=== PATIENT | female | born 1970 | race Caucasian/White ===

== ENCOUNTER 2020-12-05 07:08 | Outpatient (CLI) | payer OTHER, SELFPAY ==
--- NOTE | ~2020-12-05 | MM_ITS ---
EXAMINATION: MM screening jonas BI w aileen HISTORY: Screening mammogram TECHNIQUE: Craniocaudal and mediolateral oblique 3-D tomosynthesis images were obtained and synthetic 2-D images were generated. CAD analysis was submitted and interpreted. COMPARISON: 08/18/2018 bilateral digital screening mammogram 03/14/2018 diagnostic right mammogram 03/08/2018 limited right breast ultrasound 09/03/2017, 04/27/2016, 12/29/2014 bilateral digital screening mammogram examinations BREAST PARENCHYMAL COMPOSITION: There are scattered areas of fibroglandular density. FINDINGS: There is no evidence of suspicious mass, calcification, or architectural distortion to sugg est malignancy in either breast. There has been no suspicious interval change. 03/08/2018 limited right breast ultrasound demonstrated a 5 x 4 mm oval irregular hypoechoic mass with angular margins at 9:00 8 cm from the nipple, corresponding to a palpable abnormality that time. The re was no mammographic correlate at that time. Follow-up targeted right breast ultrasound examination at 9:00 should be considered. IMPRESSION: 1. No mammographic evidence of malignancy. 2. Consider follow-up targeted right breast ultrasound at 9:00 for comparison with 03/08/2018 limited right breast ultrasound examination which demonstrated a suspicious mass for which ultrasound-guided biopsy was recommended at the time. BI-RADS Category 0: Incomplete: Needs additional imaging evaluation. Reviewed, dictated and finalized at location A. IMPRESSION: 1. No mammographic evidence of malignancy. 2. Consider follow-up targeted right breast ultrasound at 9:00 for comparison w ith 03/08/2018 limited right breast ultrasound examination which demonstrated a suspicious mass for which ultrasound-guided biopsy was recommended at the time. BI-RADS Category 0: Incomplete: Needs additional imaging evaluation.
== END 2020-12-05 07:09 | disposition home or self-care (01) ==
LOC: CHSIMG 07:11
PROVIDERS: PCP Internal Medicine; Visit Provider Obstetrics & Gynecology
DX: Z12.31 Encounter for screening mammogram for malignant neoplasm of breast (principal)
CPT/HCPCS: 77063; 77067

== ENCOUNTER 2021-05-15 00:57 | Day surgery (SDC) | payer OTHER, SELFPAY ==
[2021-04-26 13:40] VITALS: BMI 37.6
[2021-05-15 07:45] VITALS: BP 148/86; PULSE 75; RESP 16; TEMP 36.3; O2SAT 100; BMI 39.8
[2021-05-15] MEDS: LACTATED RINGERS 1,000 ML 150 ML IV CONT (08:12)
[2021-05-15] MEDS: LIDOCAINE HCL 4% LOCAL INJ 5 ML AMP INFILTRATE (08:15)
--- NOTE | 2021-05-15 08:15 | WPDANESEPPF ---
Anes - Initial Pre Proc Eval Procedure: Operation Date: 05/15/21 09:00 Proposed Procedures p Screening Colonoscopy - Emilio Salinas MD Date/Time: 05/15/21 08:15 Surgeon: Emilio Salinas MD Pre Op Diagnosis: neoplasm screening Patient Data Age: 50 Gender: F Height: 1.7 m Weight: 115.3 kg Last Vital Signs Temp 97.4 F L 05/15/21 07:45 Pulse 75 05/15/21 07:45 Resp 16 05/15/21 07:45 BP 148/86 H 05/15/21 07:45 Pulse Ox 100 05/15/21 07:45 Allergies Allergy/AdvReac Type Severity Reaction Status Date / Time ciprofloxacin Allergy Severe Bone Pain Verified 05/15/21 08:15 Quinolones Allergy Mild unknown Verified 05/15/21 08:15 Home Medications Medication Instructions Recorded Confirmed Type budesonide-formoterol [Symbicort] 2 puff INHALATION BID 04/26/21 04/26/21 History bupropion HCl 150 mg PO DAILY 04/26/21 04/26/21 History diclofenac sodium 50 mg PO BID 04/26/21 04/26/21 History phentermine-topiramate [Qsymia] 1 cap PO DAILY 04/26/21 04/26/21 History Patient hx anesthesia problems: none Family hx anesthesia problems: none Results Review: All pre-operative results and documents have been reviewed as part of the pre-operative evaluation. [facility], [facility] Past Medical History Medical History (Updated 05/15/21 @ 08:15 by Daniel Sebastian MD) Anxiety COPD (chronic obstructive pulmonary disease) Depression Hypercholesteremia Family History Family History Father Asthma Mother Family history of lung cancer Other Family history of arthritis Family history of cardiovascular disease Family history of malignant neoplasm Social History Social History Smoking packs per day: 1 Smoking cigarettes per day: 20.0 Years smoked: 20 Smoking pack-years: 20.00 Smoking status: Former smoker Tobacco type: cigarettes Smoking end date: 06/17/12 Alcohol intake: current Drinks per week: 6 Living arrangements: with family Spiritual care concerns: No Anes - Eval Final PreProcedure Day of Procedure 05/15/21 08:15 Patient weight: morbidly obese Heart: regular rate and rhythm Lungs: clear to auscultation Airway: Mallampati scale class II Neurological: alert and oriented Last oral intake: >/= 8 hours ASA classification: III Emergent: no Anesthetic plan: proceed Anesthesia type and monitoring: general GIVS and standard monitoring Results Review: All pre-operative results and documents have been reviewed as part of the pre-operative evaluation. Informed Consent: The patient's anesthetic plan and its attendant risks and benefits were discussed with the patient/family/POA. Questions were solicited and answers provided to the satisfaction of the patient/family/POA.
--- NOTE | 2021-05-15 08:15 | PM.HPGS ---
History of Present Illness History of Present Illness Consent: Risks, benefits, and alternatives have been discussed and questions answered. Patient agrees to proceed with procedure. Chief complaint: neoplasm screening Narrative: Zara Hill is a 50 year old female here for first screening colonoscopy Review of Systems Constitutional: Constitutional: Denies headache(s) and Denies weakness Eyes: Eyes: Denies blurry vision ENT: Reports Normal hearing present, Denies headache(s) and Denies neck pain Cardiovascular: Cardiovascular: Denies chest pain and Denies dyspnea Respiratory: Respiratory: Denies dyspnea Gastrointestinal: Gastrointestinal: Reports no additional gastrointestinal complaints Genitourinary: Genitourinary: Denies dysuria Musculoskeletal: Musculoskeletal: Denies neck pain Integumentary/Breasts: Skin/Breast: Denies dry skin Neurologic: Reports Normal hearing present, Denies headache(s) and Denies weakness Psychiatric: Psychiatric: Denies anxiety Endocrine: Endocrine: Denies change in body appearance Hematologic/Lymphatic: Hematologic/Lymphatic: Denies easy bleeding Allergic/Immunologic: Allergic/Immunologic: Denies urticaria PMF Past Medical History Medical History (Updated 05/15/21 @ 08:15 by Emilio Salinas MD) Anxiety Colon cancer screening COPD (chronic obstructive pulmonary disease) Depression Hypercholesteremia Family History Family History Father Asthma Mother Family history of lung cancer Other Family history of arthritis Family history of cardiovascular disease Family history of malignant neoplasm Social History Social History Smoking packs per day: 1 Smoking cigarettes per day: 20.0 Years smoked: 20 Smoking pack-years: 20.00 Smoking status: Former smoker Tobacco type: cigarettes Smoking end date: 06/17/12 Alcohol intake: current Drinks per week: 6 Living arrangements: with family Spiritual care concerns: No Meds Home Medications and Allergies Home Medications Medication Instructions Recorded Confirmed Type budesonide-formoterol [Symbicort] 2 puff INHALATION BID 04/26/21 04/26/21 History bupropion HCl 150 mg PO DAILY 04/26/21 04/26/21 History diclofenac sodium 50 mg PO BID 04/26/21 04/26/21 History phentermine-topiramate [Qsymia] 1 cap PO DAILY 04/26/21 04/26/21 History Allergies Allergy/AdvReac Type Severity Reaction Status Date / Time ciprofloxacin Allergy Severe Bone Pain Verified 05/15/21 08:15 Quinolones Allergy Mild unknown Verified 05/15/21 08:15 Vital Signs Vital Signs - 24 hr 05/15/21 07:45 Temperature 97.4 F L Pulse Rate 75 Respiratory Rate 16 Blood Pressure 148/86 H Pulse Oximetry 100 Exam Const: General: comfortable and no acute distress HENMT: General nose exam: Normal nares present Eyes: General: appearance normal, both eyes and all related structures Neck: Neck: no JVD Resp: Auscultation: clear to auscultation bilaterally Cardio: Rate: regular rate Rhythm: regular rhythm GI: Inspection: non-distended GI Palp: Yes Soft to palpation Skin: General skin exam: normal color Neuro: General: gait normal Speech: normal speech Extrem: General: normal to inspection Psych: Mental Status: mental status grossly normal Assessment and Plan Assessment and plan (1) Colon cancer screening: Code(s): Z12.11 - Encounter for screening for malignant neoplasm of colon Status: Acute Assessment and Plan: colonoscopy
[2021-05-15 08:37] VITALS: BP 104/77; PULSE 65; RESP 20; O2SAT 97
[2021-05-15 08:47] VITALS: BP 128/83; PULSE 70; RESP 18; O2SAT 99
[2021-05-15 08:57] VITALS: BP 106/81; PULSE 63; RESP 17; O2SAT 99
== END 2021-05-15 09:13 | disposition home or self-care (01) ==
PROVIDERS: PCP Internal Medicine; Visit Provider Internal Medicine Gastroenterology
PROC: 0DJD8ZZ Inspection of Lower Intestinal Tract, Via Natural or Artificial Opening Endoscopic (ICD-10-PCS; CPT 45378; principal; 2021-05-15 09:00)
DX: Z12.11 Encounter for screening for malignant neoplasm of colon (principal); K57.30 Diverticulosis of large intestine without perforation or abscess without bleeding; K64.8 Other hemorrhoids; J44.9 Chronic obstructive pulmonary disease, unspecified; E78.00 Pure hypercholesterolemia, unspecified; F41.8 Other specified anxiety disorders; Z87.891 Personal history of nicotine dependence; E66.01 Morbid (severe) obesity due to excess calories; Z68.39 Body mass index [BMI] 39.0-39.9, adult
CPT/HCPCS: 45378; J7120

== ENCOUNTER 2022-03-18 22:10 | Observation (INO) | payer OTHER, SELFPAY ==
--- NOTE | ~2022-03-18 | CT_ITS ---
EXAMINATION: CT abdomen pelvis w con DATE: 03/19/2022 01:59 INDICATION: Right upper quadrant abdominal pain. Nausea, vomiting, and diarrhea. TECHNIQUE: Computed tomography (CT) of the abdomen and pelvis was performed with 100 mL Omnipaque 350 intravenous contrast. Automated exposure control and iterative reconstruction technique were employe d. The dose-length product was 1471.05 mGy-cm. COMPARISON: None. FINDINGS: The visualized portions of the lung bases demonstrate mild atelectasis. No pleural effusion . The heart size is normal. No pericardial effusion. The liver and spleen are normal. The gallbladder is distended. There is fat stranding around the gallbladder. The pancreas, adrenal glands, and kidne ys are normal. There are no dilated loops of bowel. There is diverticulosis of the colon without evid ence of diverticulitis. The appendix is normal. There is a 3.3 cm cyst in left ovary, likely a follic ular cyst. There is a nabothian cyst in the cervix. There are no pathologically enlarged lymph nodes. There is no free intraperitoneal fluid. There is severe lower lumbar spondylosis. IMPRESSION: 1. Acute cholecystitis. Reviewed, dictated and finalized at location B. IMPRESSION: 1. Acute cholecystitis.
[2022-03-18 22:32] VITALS: BP 187/102; PULSE 72; RESP 18; TEMP 36.6; O2SAT 100
[2022-03-19] VITALS (26 sets, daily range): BP systolic 91–188; BP diastolic 35–103; PULSE 62–86; RESP 12–26; TEMP 35.7–37.2; O2SAT 92–100; BMI 39.2
[2022-03-19 00:47] LABS: Appearance Urine Clear (Clear); Bilirubin Urine Negative (Negative); Blood Urine Trace-intact (Negative); Color Urine Yellow (Yellow); Glucose Urine UA Negative (Negative); Ketones Urine 2+ mg/dL (Negative); Leukocyte Esterase Ur Negative LEU/UL (Negative); Nitrate Urine Negative (Negative); Protein Urine Trace mg/dL (Negative); Urobilinogen Urine 0.2 mg/dL (<2.0)
[2022-03-19 00:48] LABS: Basophils Percent Auto 0.3 % (0.2-1.2); Eosinophils Percent Auto 0.4 % (0-4.4); Hematocrit 39.5 % (37.0-47.0); Hemoglobin 13.1 g/dL (12.0-15.0); Immature Granulocyte Absolute 0.03 K/mm3 (0.00-0.031); Immature Granulocyte Percent A 0.3 % (0-0.5); Lymphocytes Absolute Auto 0.95 K/mm3 (0.9-3.2); Lymphocytes Percent Auto 8.4 % (18.3-44.2); Mean Corpuscular HGB Conc 33.2 g/dl (32-36); Mean Corpuscular Hemoglobin 32.5 pg (26-34); Mean Platelet Volume 10.5 fl (7.4-10.4); Monocytes Absolute Auto 0.4 K/mm3 (0.1-0.6); Monocytes Percent Auto 3.7 % (2.6-8.5); Neutrophils Absolute Auto 9.8 K/mm3 (1.3-6.7); Neutrophils Percent Auto 86.9 % (45.5-73.1); Platelet Count Result 213 k/mm3 (150-375); Red Blood Count 4.03 M/mm3 (4.2-5.4); Red Cell Distribution Width 12.7 % (11.5-14.5); White Blood Count 11.3 K/mm3 (4.5-10.0)
[2022-03-19 00:55] LABS: RBC Urine 0-2 /hpf (0-2); Squamous Epithelial Cell Urine Rare /hpf (Few); WBC Urine 0-3 /hpf
--- NOTE | 2022-03-19 00:56 | ED.ABDPAIN ---
HPI - Abdominal Pain General Chief Complaint: Abdominal Pain <JUAN Elizalde Last Filed: 03/19/22 03:51> Stated Complaint: epigastric pain <JUAN Elizalde Last Filed: 03/19/22 03:51> Time Seen by Provider: 03/19/22 00:28 <JUAN Elizalde Last Filed: 03/19/22 03:51> Source: patient <JUAN Elizalde Last Filed: 03/19/22 03:51> Mode of arrival: ambulatory <JUAN Elizalde Last Filed: 03/19/22 03:51> Limitations: no limitations <JUAN Elizalde Last Filed: 03/19/22 03:51> History of Present Illness HPI narrative: Patient is a 51-year-old female who presents the ED with report of right upper quadrant abdominal pain. Patient reports she developed pain around 4pm on 03/18. She notes a history of previously similar pain which was attributed to gallstones, diagnosed via right upper quadrant ultrasound. She took a tramadol at home without much relief. Has not tried anything else for pain. Also reported having nausea, vomiting, diarrhea. No blood in the stool. No urinary symptoms. No fever. <JUAN Elizalde Last Filed: 03/19/22 03:51> Related Data Home Medications: Home Medications Medication Instructions Recorded Confirmed budesonide-formoterol HFA 160 2 puff inhalation BID 04/26/21 03/19/22 mcg-4.5 mcg/actuation aerosol inhaler (Symbicort) bupropion HCl 150 mg 24 hr tablet, 150 mg PO DAILY 04/26/21 03/19/22 extended release diclofenac sodium 50 mg 50 mg PO BID 04/26/21 03/19/22 tablet,delayed release progesterone micronized 100 mg 100 mg PO HS 03/19/22 03/19/22 capsule <JUAN Elizalde Last Filed: 03/19/22 03:51> Allergies/Adverse Reactions: Allergies Allergy/AdvReac Type Severity Reaction Status Date / Time ciprofloxacin Allergy Severe Bone Pain Verified 03/19/22 04:00 Quinolones Allergy Mild unknown Verified 03/19/22 04:00 <Tiffanie Lauren PA-C - Last Filed: 03/19/22 03:51> Review of Systems Review of Systems: CONSTITUTIONAL: Denies fever, chills, or sweats. CARDIOVASCULAR: Denies chest pain. RESPIRATORY: Denies dyspnea. GASTROINTESTINAL: Reports RUQ pain, N/V/D. Denies rectal bleeding, constipation. GENITOURINARY: Denies dysuria or hematuria. <Tiffanie Lauren PA-C - Last Filed: 03/19/22 03:51> All systems reviewed & are unremarkable except as noted in HPI and below <Tiffanie Lauren PA-C - Last Filed: 03/19/22 03:51> PMF Past Medical History Medical History: Medical History Anxiety Colon cancer screening COPD (chronic obstructive pulmonary disease) Depression Diverticulitis Gallstones Hypercholesteremia <JUAN Elizalde Last Filed: 03/19/22 03:51> Surgical History Surgical History: Surgical History No pertinent past surgical history <Tiffanie Lauren PA-C - Last Filed: 03/19/22 03:51> Family History Family History: Family History Father Asthma Mother Family history of lung cancer Other Family history of arthritis Family history of cardiovascular disease Family history of malignant neoplasm <Tiffanie Lauren PA-C - Last Filed: 03/19/22 03:51> Social History Social History: Social History Smoking packs per day: 1 Smoking cigarettes per day: 20.0 Years smoked: 25 Smoking pack-years: 25.00 Smoking status: Former smoker Tobacco type: cigarettes Smoking end date: 06/17/12 Alcohol intake: current Drinks per week: 8 Substance use: never Spiritual care concerns: No <Tiffanie Lauren PA-C - Last Filed: 03/19/22 03:51> Exam Narrative: GENERAL: Well appearing, obese, non-toxic, in no acute distress. HE
[2022-03-19 00:59] LABS: Alanine Aminotransferase 32 U/L (6-35); Albumin Level 4.6 g/dL (3.5-5.1); Alkaline Phosphatase 75 U/L (38-126); Anion Gap 9 mmol/L (8-16); Aspartate Amino Transferase 25 U/L (14-36); Bilirubin,Total 0.5 mg/dL (0.2-1.3); Blood Urea Nitrogen 20 mg/dL (7-17); Calcium 9.1 mg/dL (8.4-10.2); Carbon Dioxide 26 mmol/L (22-30); Chloride 100 mmol/L (98-107); Estimated CRCL calculation 90 ml/min; Estimated Glomerular Filt Rate > 60; Glucose 132 mg/dL (65-110); Lipase 40 U/L (23-300); Potassium 3.8 mmol/L (3.4-5.0); Sodium 135 mmol/L (137-145)
[2022-03-19] MEDS: ONDANSETRON INJ 4 MG/2 ML VIAL IV PUSH ×4 (01:05→20:28)
[2022-03-19] MEDS: SODIUM CHLORIDE 0.9% IV 1,000 ML 999 ML IV CONT (01:05)
[2022-03-19 01:17] LABS: Add Urine Microscopic? YES
[2022-03-19] MEDS: MORPHINE SULFATE (*CRX) 4 MG/ML INJ IV PUSH ×3 (03:37→20:27)
[2022-03-19] MEDS: SODIUM CHLORIDE 0.9% IV 1,000 ML 125 ML IV CONT (04:05)
--- NOTE | 2022-03-19 05:15 | ADMGEN ---
This patient, Zara Hill, was admitted to 3 [facility] Surg Room 320-01. Patient/family oriented to hospital policies and general routines including ID bracelet, bed and alarms, visiting hours, pain management, procedures, bathroom and other care routines, personal items, smoking policy, room service/diet, and visiting hours. Information on how to activate the Rapid Response Team has been discussed. Patient/Family are encouraged to report perceived risks to care and to ask questions if they do not understand what they are told or what they should do.
--- NOTE | 2022-03-19 09:10 | PM.IMHP ---
H&P: HPI History of Present Illness Date/Time: 03/19/22 09:10 Chief Complaint: abdominal pain Narrative: Pt is a 51 y/o F presenting to ED c/o severe RUQ/epigastric abdominal pain that started acutely yest afternoon. Pt reports pain is constant, stabbing. Pt reports assoc anorexia, nausea, bloating. Pt reports she has had similar milder episodes in the past. Pt reports she had U/S a few yrs ago showing cholelithiasis. Review of Systems Constitutional: Constitutional: Reports as per HPI, Reports anorexia, Denies chills, Reports fatigue, Denies fever(s), Reports lethargy, Reports malaise, Reports poor appetite, Reports weakness, Denies weight gain and Denies weight loss Eyes: Eyes: Reports no additional eye complaints ENT: Reports system reviewed and no additional complaints, except as documented Cardiovascular: Cardiovascular: Reports no additional cardiovascular complaints Respiratory: Respiratory: Reports no additional respiratory complaints Gastrointestinal: Gastrointestinal: Reports as per HPI, Reports abdominal pain, Reports bloating, Reports GI cramping, Reports early satiety, Denies diarrhea, Denies loose stools, Reports nausea, Denies vomiting and Denies hematemesis Genitourinary: Genitourinary: Reports no additional female genitourinary complaints Musculoskeletal: Musculoskeletal: Reports no additional musculoskeletal complaints Integumentary/Breasts: Skin/Breast: Reports system reviewed and no additional complaints, except as docu Neurologic: Reports system reviewed and no additional complaints, except as documented Psychiatric: Psychiatric: Reports no additional psychiatric complaints Endocrine: Endocrine: Reports no additional endocrine complaints Hematologic/Lymphatic: Hematologic/Lymphatic: Reports no additional hematologic/lymphatic complaints Allergic/Immunologic: Allergic/Immunologic: Reports no additional allergic/immunologic complaints [facility] Past Medical History Medical History Anxiety Colon cancer screening COPD (chronic obstructive pulmonary disease) Depression Diverticulitis Gallstones Hypercholesteremia Surgical History Surgical History No pertinent past surgical history Family History Family History Father Asthma Mother Family history of lung cancer Other Family history of arthritis Family history of cardiovascular disease Family history of malignant neoplasm Social History Social History Smoking packs per day: 1 Smoking cigarettes per day: 20.0 Years smoked: 25 Smoking pack-years: 25.00 Smoking status: Former smoker Tobacco type: cigarettes Smoking end date: 06/17/12 Alcohol intake: current Drinks per week: 8 Substance use: never Spiritual care concerns: No Comments previous C section Meds Home Medications and Allergies Home Medications Medication Instructions Recorded Confirmed Type budesonide-formoterol HFA 160 2 puff inhalation BID 04/26/21 03/19/22 History mcg-4.5 mcg/actuation aerosol inhaler (Symbicort) bupropion HCl 150 mg 24 hr tablet, 150 mg PO DAILY 04/26/21 03/19/22 History extended release diclofenac sodium 50 mg 50 mg PO BID 04/26/21 03/19/22 History tablet,delayed release progesterone micronized 100 mg 100 mg PO HS 03/19/22 03/19/22 History capsule Allergies Allergy/AdvReac Type Severity Reaction Status Date / Time ciprofloxacin Allergy Severe Bone Pain Verified 03/19/22 04:00 Quinolones Allergy Mild unknown Verified 03/19/22 04:00 Vital Signs Vital Signs - 24 hr 03/18/22 22:32 03/19/22 00:38 03/19/22 00:46 Temperature 36.6 C Pulse Rate 72 78 67 Respiratory Rate 18 17 18 Blood Pressure 187/102 H Pulse Oximetry 100 100 98 Oxygen Delivery Room Air 03/19/22 00:
--- NOTE | 2022-03-19 10:02 | WPDHPUPDATE1 ---
History and Physical Update Update Date/Time: 03/19/22 10:02 History and Physical has been reviewed, including an updated exam of the patient. There are NO changes in the patient's condition. Risks, benefits, and alternatives have been discussed and questions answered. Patient agrees to proceed with procedure.
--- NOTE | 2022-03-19 10:51 | WPDANESEPPF ---
Anes - Initial Pre Proc Eval Procedure: Operation Date: 03/19/22 13:30 Proposed Procedures p Laparoscopic Cholecystectomy - Jaimie Forde MD Date/Time: 03/19/22 10:51 Surgeon: Jaimie Forde MD Pre Op Diagnosis: Acute Cholecystitis Patient Data Age: 51 Gender: F Height: 1.7 m Weight: 113.7 kg Last Vital Signs Temp 35.7 C L 03/19/22 06:00 Pulse 85 03/19/22 06:00 Resp 18 03/19/22 06:00 BP 150/71 H 03/19/22 06:00 Pulse Ox 97 03/19/22 06:00 O2 Del Method Room Air 03/19/22 08:00 Allergies Allergy/AdvReac Type Severity Reaction Status Date / Time ciprofloxacin Allergy Severe Bone Pain Verified 03/19/22 04:00 Quinolones Allergy Mild unknown Verified 03/19/22 04:00 Home Medications Medication Instructions Recorded Confirmed Type budesonide-formoterol HFA 160 2 puff inhalation BID 04/26/21 03/19/22 History mcg-4.5 mcg/actuation aerosol inhaler (Symbicort) bupropion HCl 150 mg 24 hr tablet, 150 mg PO DAILY 04/26/21 03/19/22 History extended release diclofenac sodium 50 mg 50 mg PO BID 04/26/21 03/19/22 History tablet,delayed release progesterone micronized 100 mg 100 mg PO HS 03/19/22 03/19/22 History capsule Laboratory Tests 03/19/22 03/19/22 03/19/22 00:36 00:36 00:36 WBC 11.3 K/mm3 H K/mm3 (4.5-10.0) RBC 4.03 M/mm3 L M/mm3 (4.2-5.4) Hgb 13.1 g/dL g/dL (12.0-15.0) Hct 39.5 % % (37.0-47.0) MCV 98.0 fl fl (80-100) MCH 32.5 pg pg (26-34) MCHC 33.2 g/dl g/dl (32-36) RDW 12.7 % % (11.5-14.5) Plt Count 213 k/mm3 k/mm3 (150-375) MPV 10.5 fl H fl (7.4-10.4) Immature Gran % (Auto) 0.3 % % (0-0.5) Neut % (Auto) 86.9 % H % (45.5-73.1) Lymph % (Auto) 8.4 % L % (18.3-44.2) [place] % (Auto) 3.7 % % (2.6-8.5) Eos % (Auto) 0.4 % % (0-4.4) Baso % (Auto) 0.3 % % (0.2-1.2) Lymph # (Auto) 0.95 K/mm3 K/mm3 (0.9-3.2) [place] # (Auto) 0.4 K/mm3 K/mm3 (0.1-0.6) Eos # (Auto) 0.0 K/mm3 K/mm3 (0-0.3) Baso # (Auto) 0.0 K/mm3 K/mm3 (0.0-0.1) Abs Immat Gran (auto) 0.03 K/mm3 K/mm3 (0.00-0.031) Absolute Neuts (auto) 9.8 K/mm3 H K/mm3 (1.3-6.7) Absolute Nucleated RBC 0.0 K/mm3 K/mm3 (0.0-0.012) Nucleated RBC % 0.0 % % (0.0-0.2) Sodium 135 mmol/L L mmol/L (137-145) Potassium 3.8 mmol/L mmol/L (3.4-5.0) Chloride 100 mmol/L mmol/L (98-107) Carbon Dioxide 26 mmol/L mmol/L (22-30) Anion Gap 9 mmol/L mmol/L (8-16) BUN 20 mg/dL H mg/dL (7-17) Creatinine 0.80 mg/dL mg/dL (0.7-1.0) Estim Creat Clear Calc 90 ml/min ml/min Estimated GFR > 60 (59 - ) Glucose 132 mg/dL H mg/dL (65-110) Calcium 9.1 mg/dL mg/dL (8.4-10.2) Total Bilirubin 0.5 mg/dL mg/dL (0.2-1.3) AST 25 U/L U/L (14-36) ALT 32 U/L U/L (6-35) Alkaline Phosphatase 75 U/L U/L (38-126) Total Protein 8.0 g/dL g/dL (6.3-8.2) Albumin 4.6 g/dL g/dL (3.5-5.1) Lipase 40 U/L U/L (23-300) Urine Color Yellow (Yellow) Urine Appearance Clear (Clear) Urine pH 7.0 (5.0-9.0) Ur Specific [place] 1.020 (1.001-1.035) Urine Protein Trace mg/dL mg/dL (Negative) Urine Glucose (UA) Negative mg/dL mg/dL (Negative) Urine Ketones 2+ mg/dL H mg/dL (Negative) Ur Blood (Man) Trace-intact (Negative) Urine Nitrate Negative (Negative) Urine Bilirubin Negative (Negative) Urine Urobilinogen 0.2 mg/dL mg/dL (<2.0) Leukocyte Esterase Rfl Negative LUIZA/UL LUIZA/UL (Negative) Urine RBC 0-2 /hpf /hpf (0-2) Urine WBC 0-3 /hpf /hpf
[2022-03-19] MEDS: SCOPOLAMINE 1.5 MG PATCH TRANSDERM (11:01)
[2022-03-19] MEDS: LACTATED RINGERS 1,000 ML 30 ML IV CONT ×2 (11:01→13:21)
[2022-03-19] MEDS: BUPIVACAINE/EPINEPHRINE 0.25% 50 ML VIAL 30 ML INFILTRATE (12:52)
[2022-03-19] MEDS: fentaNYL CITRATE INJ (*CRX) 100 MCG/2 ML VIAL 25 MCG IV PUSH ×6 (13:25→13:51)
--- NOTE | 2022-03-19 13:26 | W.PM.PROC2 ---
Procedure Note - Detailed Date of Procedure 03/19/22 Pre-op Diagnosis Acute Cholecystitis Post-op Diagnosis Other (acute hydrops cholecystitis, cholelithiasis) Procedure Performed Laparoscopic cholecystectomy Surgeon Jaimie Forde MD Anesthesia General Indications 51-year-old female presented to the ED complaining of severe right upper quadrant abdominal pain associated with nausea and vomiting. Workup including imaging significant for acute cholecystitis, cholelithiasis. Findings hydrops cholecystitis with cholelithiasis Description of Procedure The patient was taken to the operating room placed in the supine position. After adequate induction of general anesthesia, the patient was prepped and draped in normal sterile fashion. A time-out was then performed to verify the patient's identity as well as the procedure being performed. I then made a 5 mm incision in the infraumbilical region. Through this, a Veress needle was placed into the peritoneal cavity and CO2 gas was then insufflated. After adequate pneumoperitoneum was achieved, the Veress needle was removed and a 5 mm optiview trocar was placed through this incision under direct visualization. I then placed the laparoscope through this trocar site and under direct visualization placed a further 12 mm subxiphoid port as well as 2 additional 5 mm ports in the right upper abdomen. There was multiple adhesions of the omentum to the anterior abdominal wall in the upper midline and RUQ. These adhesions were taken down sharply with cautery. There was an inflammatory mass in the RUQ covered with omentum. I was able to carefully take down the omentum. The gallbladder was then identified and was noted to be severely inflamed, distended, and full of gallstones. Given the intense inflammation in the gallbladder, decompression was necessary. The gallbladder was decompressed with the aspirating needle and hydrops was identified at this point. I was then able to place a grasper at the dome of the gallbladder and this was retracted anterior and cephalad up over the liver. A 2nd retractor was then placed at the infundibulum and retracted laterally, this allowed visualization of the triangle of Calot. I then was able to visualize the cystic duct in its entirety from its proximal insertion into the gallbladder, to its distal junction with the common hepatic/common bile duct junction. At this point, I carefully skeletonized the proximal cystic duct with the [place] dissector. I then clipped and transected the proximal cystic duct. Next I visualized the cystic artery. Again the artery was skeletonized, clipped, and transected. I then used the Bovie cautery to take down the peritoneal attachments of the gallbladder off the liver bed. This was somewhat difficult given the amount of inflammation in the posterior space. Once the gallbladder specimen was completely detached, an endo-pouch was placed through the 12 mm port site. I then placed the gallbladder specimen into the Endo pouch and removed the endo-pouch from the 12 mm port site. The specimen will now be sent to pathology for further review. I then copiously irrigated the right upper quadrant. Some mild oozing was noted in the liver bed and this was controlled with the bovie cautery. Hemostasis was noted in the liver bed, the clips were noted to be in good position on both the cystic duct stump and the cystic artery stump. No other pathology was noted in the right upper quadrant. I then moved the laparoscope to the subxiphoid port. No iatrogenic injury or other pathology was noted in the lower abdomen. I then closed the 12 mm trocar site under direct visualization using the Danny cone and 0 Vicryl suture. At this point, the abdomen was desufflated and all ports removed. All port sites were then closed with 4.O Monocryl subcuticular sutures. Dermabond was placed on each incision. The patient tolerated the procedure well, was extubated in the oper
--- NOTE | 2022-03-19 13:45 | SUR.PHASEI ---
1344: Simple mask removed.
[2022-03-19] MEDS: HYDROmorphone HCL INJ (*CRX) 1 MG/ML SYR IV PUSH ×2 (14:12→14:36)
[2022-03-19] MEDS: HYDROcodone/acetaminophen (*CRX) 5-325 MG TABLET 1 TAB PO (20:19)
[2022-03-19] MEDS: FLUTICASONE/SALMETEROL 115-21 MCG INHALER 1 PUFF 2 PUFF INHALATION (21:21)
[2022-03-19] MEDS: DOCUSATE SODIUM 100 MG CAPSULE PO (21:55)
[2022-03-20] MEDS: HYDROcodone/acetaminophen (*CRX) 5-325 MG TABLET 1 TAB PO ×3 (00:15→08:07)
[2022-03-20 00:19] VITALS: BP 138/74; PULSE 89; RESP 17; TEMP 37.1; O2SAT 96
[2022-03-20 05:17] VITALS: BP 111/56; PULSE 81; RESP 16; TEMP 36.9; O2SAT 94
[2022-03-20] MEDS: DOCUSATE SODIUM 100 MG CAPSULE PO (08:04)
[2022-03-20] MEDS: buPROPion HCL XL (24 HR) 150 MG TABCR PO (08:04)
[2022-03-20] MEDS: DICLOFENAC SOD 25 MG TABLET.EC 50 MG PO (08:04)
[2022-03-20] MEDS: FLUTICASONE/SALMETEROL 115-21 MCG INHALER 1 PUFF 2 PUFF INHALATION (08:23)
--- NOTE | 2022-03-20 11:04 | PM.PNGS ---
Progress Note: A&P Assessment and Plan (1) Acute calculous cholecystitis: Code(s): K80.00 - Calculus of gallbladder with acute cholecystitis without obstruction Status: Acute Assessment and Plan: Postop day 1 and seems to be improving. Patient stayed overnight for pain control. Her pain is now controlled on oral analgesics. Tolerating her diet. Will discharge home today. Follow up in [address] Forde. (2) BMI 39.0-39.9,adult: Code(s): Z68.39 - Body mass index [BMI] 39.0-39.9, adult Status: Acute Plan I have discussed the patient's case and plan of care with Dr. Forde. Subjective Subjective Date/Time Seen: 03/20/22 11:04 Post Op day: 1 (Laparoscopic cholecystectomy) Patient reports: feels better, pain is less, tolerating a regular diet, no flatus, no bowel movement and afebrile Interval history: Patient seen and examined. She was kept overnight due to pain control. She was having right upper quadrant abdominal pain and right shoulder pain following surgery. She did require IV morphine through the night, but has only received Brule this morning. She feels her pain has improved some and she is tolerating activity. She is tolerating a low-fat diet. She wishes to go home. Review of Systems Review of Systems: All systems reviewed & are unremarkable except as noted in HPI and below Cardiovascular: Cardiovascular: Reports as per HPI, Reports no additional cardiovascular complaints, Denies chest pain, Denies chest pain at rest, Denies chest pain with activity, Denies rapid heart rate and Denies pedal edema Exam Const: General: comfortable, no acute distress and awake Orientation/consciousness: patient oriented x3 Resp: Effort & Inspection: normal respiratory effort Auscultation: clear to auscultation bilaterally Cardio: Rate: regular rate Rhythm: regular rhythm GI: Inspection: non-distended, incision (Abdominal incisions clean and dry, glue intact.) and other (Localized ecchymosis around periumbilical incision) GI Palp: Yes Soft to palpation, Yes Tenderness to palpation present (GI) (incisional) and No Guarding due to palpation present (GI) Auscultation: normal bowel sounds Skin: General skin exam: normal color Neuro: General: moves all extremities and no focal motor deficits Extrem: General: no calf tenderness and no edema Psych: Mental Status: mental status grossly normal Insight: Good insight present (Psych) Judgement: Good judgement present (Psych) Objective Data Vital Signs Vital Signs: Vital Signs - 24 hr 03/19/22 13:21 03/19/22 13:35 03/19/22 13:55 Temperature 98.1 F Pulse Rate 83 70 72 Respiratory Rate 20 12 16 Blood Pressure 106/35 L 113/81 115/64 Pulse Oximetry 96 97 95 Oxygen Delivery Simple Face Mask Simple Face Mask Nasal Cannula Oxygen Flow Rate 6 8 3 03/19/22 14:10 03/19/22 14:25 03/19/22 14:40 Temperature Pulse Rate 73 74 76 Respiratory Rate 16 16 15 Blood Pressure 114/66 110/58 L 91/62 L Pulse Oximetry 92 93 93 Oxygen Delivery Nasal Cannula Nasal Cannula Nasal Cannula Oxygen Flow Rate 2 2 3 03/19/22 15:00 03/19/22 15:15 03/19/22 15:30 Temperature 99.0 F 98.9 F 98.9 F Pulse Rate 80 79 82 Respiratory Rate 16 16 16 Blood Pressure 125/74 124/74 118/73 Pulse Oximetry 94 95 96 Oxygen Delivery Oxygen Flow Rate 03/19/22 15:45 03/19/22 16:23 03/19/22 17:30 Temperature 98.9 F 98.4 F 98.7 F Pulse Rate 80 70 62 Respiratory Rate 18 16 16 Blood Pressure 120/70 110/46 L 103/51 L Pulse Oximetry 97 95 96 Oxygen Delivery Oxygen Flow Rate 03/19/22 17:00 03/19/22 20:00 03/19/22 21:58 Temperature 98.9 F 97.8 F Pulse Rate 81 85 Respiratory Rate 16 18 Blood Pressure 111/60 117/69 Pulse Oximetry 93 96 Oxygen Delivery Room Air Oxygen Flow Rate 03/20/22 00:19 03/20/22 05:17 Temperature 98.7 F 98.4 F Pulse Rate 89 81 Respiratory Rate 17 16 Blood Pressure 138/74 111/56 L Pulse Oximetry 96 94 Oxygen Delive
--- NOTE | 2022-03-20 14:35 | WPDANESPN ---
Anes - Prog Note Post-Op Date/Time: 03/20/22 14:35 Cardiovascular status: normal Respiratory status: normal Airway patency: baseline Mental status: baseline Post-Op hydration status: normal Vital Signs: Last Vital Signs Temp 36.9 C 03/20/22 05:17 Pulse 81 03/20/22 05:17 Resp 16 03/20/22 05:17 BP 111/56 L 03/20/22 05:17 Pulse Ox 94 03/20/22 05:17 O2 Del Method Room Air 03/19/22 20:00 O2 Flow Rate 3 03/19/22 14:40 Pain Score (VAS): 0 I/O: Intake & Output 03/19/22 03/20/22 03/20/22 23:59 07:59 15:59 Intake Total 320 1400 120 Balance 320 1400 120 Laboratory Tests 03/19/22 00:36 03/19/22 00:36 Post-procedural complaints: none Patient Feedback: Patient satisfied with anesthetic care.
--- NOTE | 2022-03-21 10:45 | PM.DS ---
DS: Admitting Diagnosis Discharge Date 03/20/22 Admitting Diagnosis Acute cholecystitis, cholelithiasis DS: Discharge Diagnosis Discharge Diagnosis (1) Acute calculous cholecystitis: Code(s): K80.00 - Calculus of gallbladder with acute cholecystitis without obstruction Status: Acute Assessment and Plan: status post laparoscopic cholecystectomy, continue routine postoperative care, home with p.o. analgesia, follow-up 2 weeks (2) BMI 39.0-39.9,adult: Code(s): Z68.39 - Body mass index [BMI] 39.0-39.9, adult Status: Acute Assessment and Plan: dietary and lifestyle modification DS: Summary Hospital Course Reason for hospitalization: acute cholecystitis, cholelithiasis Hospital Course: The patient is a 51-year-old female presenting to the emergency department complaining of severe upper abdominal pain. Workup in the emergency department, including imaging, was significant for acute cholecystitis cholelithiasis. The patient was admitted to the surgical service and made NPO. She was also started on IV antibiotics. Upon evaluation, decision was made to proceed with urgent cholecystectomy. The patient was taken to the operating room and laparoscopic cholecystectomy was performed, please see full operative report for details. The patient was noted to have hydrops cholecystitis during the procedure. Postoperatively, the patient did well was transferred back to the surgical floor. The patient did well postoperatively and was up and ambulating as well as able to tolerate a diet. The pt will be discharged on postoperative 1 with p.o. analgesia and follow-up in 2 weeks. Status at Discharge Functional status at discharge: independent ambulation Overall status at discharge: patient is progressing back to baseline Time Spent with Patient Time attestation: Total time spent providing and/or coordinating discharge services: Time spent: Less than 30 minutes Exam Const: General: cooperative, comfortable and no acute distress Resp: Auscultation: clear to auscultation bilaterally Cardio: Rate: regular rate Rhythm: regular rhythm GI: Inspection: normal to inspection, distended and incision GI Palp: Yes abdominal tenderness, Yes Soft to palpation, Yes Tenderness to palpation present (GI), No Guarding due to palpation present (GI) and No Rigid due to palpation DS: Data Data Completed and Pending Completed studies during hospitalization: Pending at discharge 03/19/22 12:46 Surgical [PTH] Routine Discharge Plan Discharge Attending physician on discharge: Jaimie Forde Consulting providers: Tiffanie Lauren ; Keven Rodriguez V. ; Candelaria Gamez Discharging Clinician: Jaimie Forde Patient Disposition: Home, Self-Care Activity: other - see discharge instructions Diet: other - see discharge instructions Wound Care Instructions: other - see discharge instructions Discharge Instructions: DISCHARGE INSTRUCTION SHEET FOR HERNIA, GALLBLADDER AND APPENDIX SURGERIES DR. FORDE PATIENT TO TAKE HOME 1. May shower in 24 hours, no soaking in bath x 2weeks. 2. Call office for: Wound increasingly painful or bleeding Vomiting Fever of greater than 101 degrees 3. If no bowel movement for three days, take 1 oz. (30 ml) Milk of Magnesia or MiraLax 17g 1 to 2 times daily. 4. No heavy lifting > 10-15 pounds x 6 weeks for hernia repairs and 2 weeks for laparoscopic cholecystectomy or appendectomy. 5. No driving for 3 days or while taking narcotic pain medications. 6. Ice to surgical site for 48 hours (30 min on, then 30 min off). 7. Up walking 10-30 minutes three times per day. 8. Resume previous home medications. 9. Follow-up 10-14 days in office for wound check or as previously scheduled. ([id number]) 10. Oral pain medications prescription to be sent to pharmacy. Take Tylenol 500mg every 6 hours and I
== END 2022-03-20 10:40 | disposition home or self-care (01) ==
LOC: ANHED 03-19 03:43 → ANH3MEDSUR 03-19 04:03
PROVIDERS: Physician Assistant; Admitting Provider Surgery; Emergency Provider Emergency Medicine; PCP Internal Medicine; Visit Provider Surgery
PROC: 0FT44ZZ Resection of Gallbladder, Percutaneous Endoscopic Approach (ICD-10-PCS; CPT 47562; principal; 2022-03-19 13:30)
DX: K80.00 Calculus of gallbladder with acute cholecystitis without obstruction (principal); F41.8 Other specified anxiety disorders; J44.9 Chronic obstructive pulmonary disease, unspecified; E78.00 Pure hypercholesterolemia, unspecified; Z87.891 Personal history of nicotine dependence; Z68.39 Body mass index [BMI] 39.0-39.9, adult
CPT/HCPCS: 47562; 36415; 74177; 80053; 81001; 83690; 85025; 88304; 94640; 96361; 96365; 96366; 96375; 96376; 99285; A9270; G0378; J0131; J0330; J1100; J1170; J2250; J2270; J2405; J2543; J2704; J3010; J7030; J7120; Q9967

== ENCOUNTER 2023-12-16 12:21 | Outpatient (CLI) | payer OTHER, SELFPAY ==
--- NOTE | ~2023-12-16 | XR_ITS ---
XR foot LT min 3V Ordering provider: Yossi Hoffman MD History: . bilat dorsal foot pain x 1 year, NKI . Comparison: October 08, 2018 FINDINGS: BONES: No acute fracture or dislocation. Calcaneus spur. JOINT SPACES: Normal. No tarsal coalition. SOFT TISSUES: Normal. IMPRESSION: No acute osseous abnormality left foot. Reviewed, dictated and finalized at location A.
--- NOTE | ~2023-12-16 | XR_ITS ---
EXAMINATION: XR foot RT min 3V DATE: 12/16/2023 12:40 INDICATION: Bilateral dorsal foot pain TECHNIQUE: Dorsoplantar, two oblique and lateral views of the right foot were obtained. COMPARISON: 10/08/2018 FINDINGS: 40 degrees hallux valgus mild hypertrophic and cystic change at the lateral head of the right clavicl e consistent with secondary bunion. Minimal pes planus. Polyarticular osteoarthritis, moderate severi ty at the naviculocuneiform and mild at the first metatarsophalangeal and multiple tarsometatarsal an d interphalangeal joints. Moderate-sized plantar calcaneal spur and small Achilles calcaneal spur. So ft tissues are unremarkable. IMPRESSION: 1. Minimal pes planus. 2. 40 degrees hallux valgus with bunion. 3. Polyarticular osteoarthritis, moderate at the naviculocuneiform articulations and otherwise mild. Reviewed, dictated and finalized at location B. IMPRESSION: 1. Minimal pes planus. 2. 40 degrees hallux valgus with bunion. 3. Polyarticular osteoarthritis, moderate at the naviculocuneiform articulation s and otherwise mild.
== END 2023-12-16 12:22 | disposition home or self-care (01) ==
LOC: ANHBWCIMG 12:23
PROVIDERS: PCP Internal Medicine; Visit Provider Orthopaedic Surgery
DX: M21.41 Flat foot [pes planus] (acquired), right foot (principal); M20.11 Hallux valgus (acquired), right foot; M21.611 Bunion of right foot; M19.071 Primary osteoarthritis, right ankle and foot; M79.672 Pain in left foot
CPT/HCPCS: 73630